=== PATIENT | female | born 1945 | race Caucasian/White ===

== ENCOUNTER 2020-08-10 21:56 | Observation (INO) | payer MEDICARE ==
[2020-08-10 22:34] VITALS: BMI 18.1
[2020-08-11] MEDS ORDERED: hydrALAZINE 20 MG/ML VIAL SLOW IVP PRN (00:30)
[2020-08-11] MEDS ORDERED: Acetaminophen 325 MG TAB PO PRN (00:30)
[2020-08-11] MEDS ORDERED: Ondansetron ODT 4 MG TAB PO PRN (00:30)
[2020-08-11] MEDS ORDERED: Ondansetron PF 4 MG/2 ML Vial IVP PRN (00:30)
[2020-08-11 05:45] LABS: #Eosinphils 0.3 thou/uL (0.0-0.7); #Lymphocytes 2.1 thou/uL (1.20-3.40); #Monocytes 0.6 thou/uL (0.11-0.59); #Neutrophils 3.5 thou/uL (1.40-6.50); %Basophils 0.6 % (0.0-1.0); %Eosinophils 4.8 % (0.0-10.0); %Lymphocytes 32.2 % (21.0-51.0); %Monocytes 9.6 % (0.0-10.0); %Neutrophils 52.8 % (42.0-75.0); Hemoglobin 13.3 g/dL (12.0-16.0); Mean Corpuscular HGB CONC 32.2 g/dL (32.0-36.0); Mean Corpuscular Volume 93.2 fL (78.0-98.0); Mean Platelet Volume 7.3 fL (7.4-10.4); Platelet Count 212 thou/uL (130-400); RBC Distribution Width 12.6 % (11.5-14.5); Red Blood Cell (RBC) Count 4.43 mill/uL (4.20-5.40); White Blood Cell (WBC) Count 6.5 thou/uL (4.8-10.8)
[2020-08-11 06:12] LABS: Anion Gap 10 mmol/L (10-20); BUN (Urea Nitrogen) 14 mg/dL (9.8-20.1); Calc. Creatinine Clearance 50 mL/min (70-130); Calcium 9.3 mg/dL (7.8-10.44); Carbon Dioxide 30 mmol/L (23-31); Cardiac Risk 3.2 (Less than 4.5); Chloride 104 mmol/L (98-107); Cholesterol 152 mg/dl (< 200 Desired); Glucose 91 mg/dL (83-110); HDL Cholesterol 47 mg/dL (>60 Neg Risk); LDL Cholesterol, Calculated 80 mg/dL; Potassium 4.1 mmol/L (3.5-5.1); Sodium 140 mmol/L (136-145); Triglycerides 124 mg/dL (Less than 150)
[2020-08-11] MEDS ORDERED: Aspirin 81 mg Enteric Coated Tablet PO SCH (09:00)
[2020-08-11] MEDS ORDERED: Enoxaparin Sodium 40 MG/0.4 ML SYRINGE SC SCH (09:00)
[2020-08-11 11:00] LABS: SARS-CoV-2 PCR by NAA Not Detected (NotDetected)
[2020-08-11 15:36] VITALS: BP 108/76; TEMP 97.8
== END 2020-08-11 19:20 | disposition home or self-care (01) ==
LOC: INTOOBSV 21:56 → 2SE 21:56
PROVIDERS: ADMIT Pediatrics; ATTEND Emergency Medicine
DX: R42 Dizziness and giddiness (principal); I25.10 Atherosclerotic heart disease of native coronary artery without angina pectoris; F17.210 Nicotine dependence, cigarettes, uncomplicated; I34.0 Nonrheumatic mitral (valve) insufficiency; I65.23 Occlusion and stenosis of bilateral carotid arteries; Z20.822 Contact with and (suspected) exposure to COVID-19
CPT/HCPCS: 70551; 80048; 80061; 85025; 93306; 93880; 97139 ×3; G0378; U0003; U0005; 36415